=== PATIENT | female | born 1995 | race Caucasian/White ===

== ENCOUNTER 2024-03-08 22:14 | Emergency (ER) | payer OTHER ==
[~2024-03-08] VITALS: Ht 149.9 cm; Wt 61.6 kg
[2024-03-08] MEDS: diphenhydrAMINE 50 mg/ml inj IV ONE (23:20)
[2024-03-08] MEDS: ketorolac trometh 15mg/ml vial 15 MG/ML ML IV ONE (23:20)
[2024-03-08] MEDS: metoclopramide 5 mg/ml inj IV ONE (23:21)
[2024-03-08] MEDS: normal saline 1000ML IV soln IVB ONE ×2 (23:21→23:22)
[2024-03-08 23:22] LABS: BASOPHILS # (AUTO) 0.1 X10'3 (0-0.2); BASOPHILS % (AUTO) 0.9 % (0-1); EOSINOPHILS # (AUTO) 0.1 X10'3 (0-0.9); EOSINOPHILS % (AUTO) 1.1 % (0-6); HEMATOCRIT 43.4 % (35.0-45.0); HEMOGLOBIN 15.1 g/dl (12.0-16.0); LYMPHOCYTES # (AUTO) 2.8 X10'3 (1.1-4.8); LYMPHOCYTES % (AUTO) 28.1 % (21-51); MEAN CORPUSCULAR HEMOGLOBIN 30.8 PG (27.0-31.0); MEAN CORPUSCULAR HGB CONC 34.8 g/dL (33.0-36.5); MEAN CORPUSCULAR VOLUME 88.6 FL (78-98); MEAN PLATELET VOLUME 7.9 FL (7.4-10.4); MONOCYTES # (AUTO) 0.6 X10'3 (0-0.9); MONOCYTES % (AUTO) 6.3 % (2-12); NEUTROPHILS # (AUTO) 6.3 X10'3 (1.8-7.7); NEUTROPHILS % (AUTO) 63.6 % (42-75); PLATELET COUNT 342 X10'3 (140-440); RED CELL DISTRIBUTION WIDTH 12.2 % (11.5-14.5); WHITE BLOOD COUNT 9.9 X10'3 (4.5-11.0)
[2024-03-08 23:29] LABS: ALANINE AMINOTRANSFERASE 23 U/L (12-78); ALBUMIN/GLOBULIN RATIO 0.8 (1.1-1.5); ALKALINE PHOSPHATASE 76 IU/L (46-116); ANION GAP 12 (8-16); ASPARTATE AMINO TRANSFERASE 29 U/L (10-37); BILIRUBIN,TOTAL 0.7 MG/DL (0.1-1.0); BLOOD UREA NITROGEN 10 MG/DL (7-18); BUN/CREATININE RATIO 15.9 (10.0-20.0); CALCIUM 9.6 MG/DL (8.5-10.1); CHLORIDE 102 MMOL/L (99-107); CREATININE 0.63 MG/DL (0.40-0.90); GLUCOSE 111 MG/DL (70-104); LIPASE 45 U/L (16-77); POTASSIUM 4.2 MMOL/L (3.5-5.1); SODIUM 136 MMOL/L (135-145); TOTAL CARBON DIOXIDE 21.8 MMOL/L (24-32); TOTAL PROTEIN 8.9 G/DL (6.4-8.2); eCRCL 91 ML/MIN; eGFR > 90 ML/MIN
[2024-03-09] MEDS: ondansetron/PF 4mg/2ml inj IV ONE (00:38)
[2024-03-09 00:40] LABS: BILIRUBIN,URINE NEGATIVE (Neg); CLARITY,URINE CLEAR (Clear); COLOR,URINE YELLOW (Yellow); GLUCOSE, URINE NEGATIVE (Neg); KETONES,URINE TRACE mg/dl (Neg); LEUKOCYTE ESTERASE ,URINE TRACE (Neg); NITRITES, URINE NEGATIVE (Neg); OCCULT BLOOD,URINE SMALL (Neg); PH,URINE 5.5 (4.8-8.0); PROTEIN,URINE NEGATIVE (Neg); UROBILINOGEN,URINE 0.2 E.U/dL (0.2-1.0)
[2024-03-09 00:41] LABS: URINE HCG NEGATIVE (NEG)
[2024-03-09 00:44] LABS: UA COLLECTION TYPE CLN CATCH MIDSTREAM
[2024-03-09 00:46] LABS: BACTERIA,URINE FEW /HPF (Neg); SQUAMOUS EPITHELIAL CELL,UR FEW /LPF (FEW)
[2024-03-09] MEDS ORDERED: CEFU250T95 PO (01:05)
[2024-03-09] MEDS ORDERED: ONDA-243 PO (01:05)
[2024-03-09] MEDS: CefTRIAXone 2gm/D5W 50ml BAG 50 ML IV ONE (01:18)
[2024-03-09 01:20] VITALS: BP 107/60; PULSE 96; RESP 16; O2SAT 97
== END 2024-03-09 01:52 | disposition home or self-care (01) ==
LOC: ER 22:15
DX: N39.0 Urinary tract infection, site not specified (principal); F12.90 Cannabis use, unspecified, uncomplicated; E86.0 Dehydration; Z88.5 Allergy status to narcotic agent
CPT/HCPCS: 36415; 80053; 81001; 81025; 83690; 83735; 84100; 85025; 87088; 96361; 96365; 96375; 99284; J0696; J1200; J1885; J2405; J2765; J7030; 96360

== ENCOUNTER 2024-03-12 00:18 | Emergency (ER) | payer OTHER ==
[~2024-03-12] VITALS: Ht 149.9 cm; Wt 59.1 kg
[~2024-03-12 00:18] MED LIST: CEFU250T95 PO; ONDA-243 PO
[2024-03-12 00:29] VITALS: BP 143/85; PULSE 87; RESP 16; TEMP 98.3; O2SAT 98
[2024-03-12 01:39] LABS: BASOPHILS # (AUTO) 0.1 X10'3 (0-0.2); BASOPHILS % (AUTO) 0.7 % (0-1); EOSINOPHILS # (AUTO) 0.2 X10'3 (0-0.9); EOSINOPHILS % (AUTO) 1.8 % (0-6); HEMATOCRIT 35.1 % (35.0-45.0); HEMOGLOBIN 12.2 g/dl (12.0-16.0); LYMPHOCYTES # (AUTO) 2.8 X10'3 (1.1-4.8); LYMPHOCYTES % (AUTO) 28.5 % (21-51); MEAN CORPUSCULAR HEMOGLOBIN 30.9 PG (27.0-31.0); MEAN CORPUSCULAR HGB CONC 34.8 g/dL (33.0-36.5); MEAN CORPUSCULAR VOLUME 88.9 FL (78-98); MEAN PLATELET VOLUME 7.8 FL (7.4-10.4); MONOCYTES # (AUTO) 0.7 X10'3 (0-0.9); MONOCYTES % (AUTO) 7.1 % (2-12); NEUTROPHILS % (AUTO) 61.9 % (42-75); PLATELET COUNT 290 X10'3 (140-440); RED BLOOD COUNT 3.95 X10'6 (4.20-5.60); RED CELL DISTRIBUTION WIDTH 12.5 % (11.5-14.5); WHITE BLOOD COUNT 9.7 X10'3 (4.5-11.0)
[2024-03-12 01:54] LABS: ALANINE AMINOTRANSFERASE 27 U/L (12-78); ALKALINE PHOSPHATASE 65 IU/L (46-116); ANION GAP 9 (8-16); ASPARTATE AMINO TRANSFERASE 18 U/L (10-37); BILIRUBIN,TOTAL 0.3 MG/DL (0.1-1.0); BLOOD UREA NITROGEN 15 MG/DL (7-18); BUN/CREATININE RATIO 25.4 (10.0-20.0); CALCIUM 9.2 MG/DL (8.5-10.1); CHLORIDE 106 MMOL/L (99-107); CREATININE 0.59 MG/DL (0.40-0.90); GLUCOSE 87 MG/DL (70-104); POTASSIUM 3.5 MMOL/L (3.5-5.1); SODIUM 141 MMOL/L (135-145); TOTAL CARBON DIOXIDE 25.6 MMOL/L (24-32); TOTAL PROTEIN 8.1 G/DL (6.4-8.2); eCRCL 98 ML/MIN; eGFR > 90 ML/MIN
[2024-03-13] MEDS ORDERED: HYDR-3973 PO (11:29)
[2024-03-13] MEDS ORDERED: SULF1TAB49 PO (11:29)
== END 2024-03-12 05:28 | disposition left against medical advice (07) ==
LOC: ER 00:18
DX: R55 Syncope and collapse (principal); Z88.0 Allergy status to penicillin; Z88.8 Allergy status to other drugs, medicaments and biological substances; Z53.21 Procedure and treatment not carried out due to patient leaving prior to being seen by health care provider
CPT/HCPCS: 36415; 71045; 80053; 84484; 85025; 93005

== ENCOUNTER 2024-03-13 05:57 | Emergency (ER) | payer OTHER ==
[~2024-03-13] VITALS: Ht 149.9 cm; Wt 62.7 kg
[2024-03-13] MEDS: normal saline 1000ML IV soln IVB ONE (06:40)
[2024-03-13 06:53] LABS: BILIRUBIN,URINE NEGATIVE (Neg); CLARITY,URINE SLIGHTLY CLOUDY (Clear); COLOR,URINE STRAW (Yellow); GLUCOSE, URINE NEGATIVE (Neg); KETONES,URINE NEGATIVE (Neg); LEUKOCYTE ESTERASE ,URINE LARGE (Neg); NITRITES, URINE NEGATIVE (Neg); OCCULT BLOOD,URINE TRACE-INTACT (Neg); PROTEIN,URINE NEGATIVE (Neg); UROBILINOGEN,URINE 0.2 E.U/dL (0.2-1.0)
[2024-03-13 06:58] LABS: URINE HCG NEGATIVE (NEG)
[2024-03-13 07:03] LABS: UA COLLECTION TYPE CLN CATCH MIDSTREAM
[2024-03-13 07:07] LABS: BACTERIA,URINE 1+ /HPF (Neg); MUCUS STRANDS NONE SEEN /LPF (Neg); RBC,URINE NONE SEEN /HPF (0-2); SQUAMOUS EPITHELIAL CELL,UR MANY /LPF (FEW); WBC,URINE 50-100 /HPF (0-4)
[2024-03-13] MEDS: normal saline 1000ml 1,000 ML IV ONE (07:42)
[2024-03-13] MEDS: ketorolac trometh 30MG/ML vial 30 MG/ML VIAL IV ONE (07:43)
[2024-03-13] MEDS: proCHLORperazine 10 MG/2 ml inj IV ONE (07:43)
[2024-03-13 08:31] LABS: BASOPHILS # (AUTO) 0.1 X10'3 (0-0.2); BASOPHILS % (AUTO) 0.8 % (0-1); EOSINOPHILS # (AUTO) 0.1 X10'3 (0-0.9); EOSINOPHILS % (AUTO) 1.4 % (0-6); HEMATOCRIT 38.4 % (35.0-45.0); HEMOGLOBIN 13.1 g/dl (12.0-16.0); LYMPHOCYTES # (AUTO) 2.3 X10'3 (1.1-4.8); MEAN CORPUSCULAR HEMOGLOBIN 30.9 PG (27.0-31.0); MEAN CORPUSCULAR HGB CONC 34.2 g/dL (33.0-36.5); MEAN CORPUSCULAR VOLUME 90.1 FL (78-98); MEAN PLATELET VOLUME 8.5 FL (7.4-10.4); MONOCYTES # (AUTO) 0.6 X10'3 (0-0.9); MONOCYTES % (AUTO) 5.9 % (2-12); NEUTROPHILS # (AUTO) 7.2 X10'3 (1.8-7.7); NEUTROPHILS % (AUTO) 69.9 % (42-75); PLATELET COUNT 330 X10'3 (140-440); RED BLOOD COUNT 4.26 X10'6 (4.20-5.60); RED CELL DISTRIBUTION WIDTH 12.7 % (11.5-14.5); WHITE BLOOD COUNT 10.3 X10'3 (4.5-11.0)
[2024-03-13 08:48] LABS: ALANINE AMINOTRANSFERASE 23 U/L (12-78); ALBUMIN/GLOBULIN RATIO 0.9 (1.1-1.5); ALKALINE PHOSPHATASE 65 IU/L (46-116); ANION GAP 11 (8-16); ASPARTATE AMINO TRANSFERASE 15 U/L (10-37); BILIRUBIN,TOTAL 0.3 MG/DL (0.1-1.0); BLOOD UREA NITROGEN 7 MG/DL (7-18); BUN/CREATININE RATIO 13.2 (10.0-20.0); CALCIUM 9.3 MG/DL (8.5-10.1); CHLORIDE 105 MMOL/L (99-107); CREATININE 0.53 MG/DL (0.40-0.90); GLUCOSE 103 MG/DL (70-104); LIPASE 55 U/L (16-77); POTASSIUM 3.6 MMOL/L (3.5-5.1); SODIUM 140 MMOL/L (135-145); TOTAL CARBON DIOXIDE 23.7 MMOL/L (24-32); TOTAL PROTEIN 8.4 G/DL (6.4-8.2); eCRCL 109 ML/MIN; eGFR > 90 ML/MIN
[2024-03-13] MEDS: ondansetron/PF 4mg/2ml inj IV ONE (09:56)
[2024-03-13] MEDS ORDERED: SULF1TAB49 PO (11:29)
[2024-03-13] MEDS ORDERED: HYDR-3973 PO (11:29)
[2024-03-13] MEDS: sulfamethoxazole/trimethoprim DS (800/160mg) tablet PO ONE (12:02)
[2024-03-13] MEDS: HYDROcodone/acetaminophen 5mg/325mg tablet PO ONE (12:02)
[2024-03-13 12:07] VITALS: BP 113/75; PULSE 114; RESP 18; TEMP 97.7; O2SAT 99
== END 2024-03-13 12:08 | disposition home or self-care (01) ==
LOC: ER 05:57
DX: N39.0 Urinary tract infection, site not specified (principal); F12.90 Cannabis use, unspecified, uncomplicated; Z88.5 Allergy status to narcotic agent
CPT/HCPCS: 36415; 76700; 80053; 81001; 81025; 83690; 85025; 96361; 96374; 96375; 99285; J0780; J1885; J2405; J7030; J7040

== ENCOUNTER 2024-06-16 15:43 | Emergency (ER) | payer MEDICAID, OTHER ==
[~2024-06-16] VITALS: Ht 149.9 cm; Wt 61.4 kg
[~2024-06-16 15:43] MED LIST changes: -CEFU250T95 PO
[2024-06-16 16:28] LABS: BILIRUBIN,URINE NEGATIVE (Neg); CLARITY,URINE CLEAR (Clear); COLOR,URINE YELLOW (Yellow); GLUCOSE, URINE NEGATIVE (Neg); KETONES,URINE NEGATIVE (Neg); LEUKOCYTE ESTERASE ,URINE SMALL (Neg); NITRITES, URINE NEGATIVE (Neg); OCCULT BLOOD,URINE TRACE-INTACT (Neg); PH,URINE 6.5 (4.8-8.0); PROTEIN,URINE NEGATIVE (Neg); URINE HCG NEGATIVE (NEG); UROBILINOGEN,URINE 0.2 E.U/dL (0.2-1.0)
[2024-06-16 16:33] LABS: UA COLLECTION TYPE CLN CATCH MIDSTREAM
[2024-06-16 16:35] LABS: BACTERIA,URINE FEW /HPF (Neg); RBC,URINE 0-2 /HPF (0-2); SQUAMOUS EPITHELIAL CELL,UR FEW /LPF (FEW)
[2024-06-16 16:36] LABS: AMORPHOUS PHOSPHATES 1+; MUCUS STRANDS FEW /LPF (Neg)
--- NOTE | 2024-06-16 17:02 | Physician Documentation ---
History of Present Illness ~ Chief Complaint: Flank Pain Stated Complaint: ABD PAIN Time Seen by MD: 17:01 Mode of Arrival: POV [facility] 29-year-old female presents to the emergency department reporting that she has had chronic issues with urinary tract infections for the last six months. Her last treatment was in February, but the that time she was actually found to have chlamydia. She has had issues with low back pain, and saw her doctor about a month ago and received muscle relaxants. In the last couple of days, however, she has developed a fever as high as 102, been unusually tired, and has felt somewhat flu-like. She does also report that she has urinary tract infection symptoms again. She denies vaginal discharge. She reports a negative test at home. She denies concerns for STIs. She has been nauseous, reduced appetite, but has not vomited. Medication Reconciliation Allergies: Coded Allergies: tramadol (Verified Allergy, Intermediate, ANXIETY, 06/16/24) Uncoded Allergies: PENICILLIN (Allergy, Unknown, 03/13/24) Scheduled Sulfamethoxazole/Trimethoprim (Bactrim Ds Tablet), 1 EACH PO BID Scheduled PRN ONDANSETRON ODT 4mg tablet (Ondansetron Odt), 1 TABLET PO Q6H PRN for nausea/vomiting Past Medical History Past Medical History: No Pertinent History Past Surgical History: no surgical history Drug Use: marijuana Lives In: Home Review of Systems ROS As stated above in the HPI, otherwise all systems are reviewed and negative. Physical Exam Vital Signs: Temperature: 98.4, Source: Oral, Heart Rate: 93, Respiratory Rate: 17, BP: 124/84, Pulse Oximetry: 99, Weight: 61.360 Physical Exam General: Alert, no apparent distress. Neck: Full range of motion. Respiratory: Lungs clear, no respiratory distress. Chest: No accessory muscle use. Cardiovascular: Regular rate and rhythm, no murmurs. Gastrointestinal: Soft, nontender, nondistended. Bowels sounds present. Right CVA tenderness. Extremities: Normal range of motion, no deformity. Neurologic: Oriented x4. Psychiatric: Normal mood and affect. Skin: Normal color, warm and dry. No edema, no ecchymosis. Progress Progress Note Dr. Tracy Cook evaluated this patient last night she had a fever. Today she developed some epigastric discomfort and a feeling of faintness. She also complained of right lower quadrant to suprapubic discomfort. She also complaining of right-sided flank pain. These feels similar to prior episodes of pyelonephritis . She is afebrile here with no tachycardia and normal blood pressure. She has no leukocytosis and her exam is mostly benign she has a mild suprapubic discomfort/tenderness and potential mild right lower quadrant tenderness. No periumbilical tenderness no guarding no rebound. I did discuss the possibility of this being an early appendicitis. We both agreed that at this point we can treat as a urinary tract infection given her history and how it feels similar however she is aware that she needs to return to the emergency department if she has any progression of her symptoms and that if she does not have complete resolution of her symptoms within a few days then she should be seen again by her primary care physician or chef head. Results/Orders Results/Orders Medications Received in ER Medications (Trade) Dose Ordered Sig/Nathaly Route PRN Reason Start Time Stop Time Status Last Admin Dose Admin (Toradol injection) 15 mg ONCE ONCE IV 06/16/24 17:20 06/16/24 17:21 DC 06/16/24 17:51 15 MG (Zofran 4mg/2ml vial) 4 mg ONCE ONCE IV 06/16/24 17:20 06/16/24 17:21 DC 06/16/24 17:51 4 MG Sodium Chloride 1,000 ml @ 1,000 mls/hr ONCE ONCE IV 06/16/24 17:20 06/16/24 18:19 DC 06/16/24 17:51 1,000 MLS/HR Ceftriaxone Sodium 50 ml @ 100 mls/hr ONCE ONCE IV 06/16/24 18:15 06/16/24 18:44 DC 06/16/24 18:44 100 MLS/HR Vital Signs 06/16/24 06/16/24 06/16/24 06/16/24 15:47 16:30 16:32 17:00 Temp 98.6 98.4 Pulse 89 93 77 Resp 18 12 17 13 B/P (MAP) 115/76 124/84 (97) 112/72 (85) Pulse Ox 99 99 98 O2 Flow Rate 0 06/16/24 06/16/24 06/16/24 06/16/24 17:11 17:30 18:00 18:21 Pulse 86 77 76 76 Resp 15 15 16 B/P (MAP) 136/81 108/72 (84) 112/86 Pulse Ox 99 98 O2 Flow Rate 0 0 06/16/24 19:00 Pulse 80 Resp 16 B/P (MAP) 111/63 (79) Pulse Ox 100 Laboratory Tests Test 06/16/24 15:50 06/16/24 17:49 Urine Specimen Description Cln catch midstream Urine Color Yellow Urine Clarity Clear Urine pH 6.5 Urine Specific [place] 1.020 Urine Protein Negative Urine Glucose (UA) Negative Urine Ketones Negative Urine Occult Blood Trace-intact Urine Nitrite Negative Urine Bilirubin Negative Urine Urobilinogen 0.2 Urine Leukocyte Esterase Small H Urine RBC 0-2 Urine WBC 5-10 H Urine Squamous Epithelial Cells Few Urine Transitional Epithelial Cells Urine Amorphous Phosphates 1+ Urine Bacteria Few Urine Mucus Few Urine Culture Indicated Indicated Volume Urine Centrifuged 10 ml Urine HCG, Qualitative Negative Urine Comment White Blood Count 8.8 Red Blood Count 4.39 Hemoglobin 13.1 Hematocrit 38.4 Mean Corpuscular Volume 87.6 Mean Corpuscular Hemoglobin 29.9 Mean Corpuscular Hemoglobin Concent 34.1 Red Cell Distribution Width 12.7 Platelet Count 306 Mean Platelet Volume 8.2 Neutrophils (%) (Auto) 72.6 Lymphocytes (%) (Auto) 21.1 Monocytes (%) (Auto) 4.8 Eosinophils (%) (Auto) 1.1 Basophils (%) (Auto) 0.4 Neutrophils # (Auto) 6.4 Lymphocytes # (Auto) 1.9 Monocytes # (Auto) 0.4 Eosinophils # (Auto) 0.1 Basophils # (Auto) 0.0 CBC Comment Sodium Level 141 Potassium Level 3.6 Chloride Level 106 Carbon Dioxide Level 24.3 Anion Gap 11 Blood Urea Nitrogen 6 L Creatinine 0.90 Estimated GFR/1.73 m2 75 BUN/Creatinine Ratio 6.7 L Glucose Level 83 Lactic Acid Level 1.0 Calcium Level 9.2 Total Bilirubin 0.6 Aspartate Amino Transf (AST/SGOT) 17 Alanine Aminotransferase (ALT/SGPT) 20 Alkaline Phosphatase 70 C-Reactive Protein 0.15 Total Protein 7.8 Albumin 4.2 Globulin 3.6 Albumin/Globulin Ratio 1.2 Procalcitonin < 0.05 Chemistry Comments Microbiology Date/Time Source Procedure Growth Status 06/16/24 16:36 Urine Clean Catch Midstream Urine Culture - Preliminary Culture received. Resulted EKG/XRAY/CT/US/VASC/MRI CT : Impression Considered CT scan however with her symptoms similar to prior pyelo UTI no white count no fever imaging deferred for now Medical Decision Making Additional Comment 29-year-old female who presents to the emergency department with symptoms of complicated urinary tract infection. She was found to have right CVA tenderness on exam. Reported fevers of 102 at home. Labs did not indicate concern for sep sis. She was appropriate for tx with Rocephin IV in the ER and to be sent home with a course of Bactrim x 5 days for home treatment. Should return if worse, otherwise followup with PCP. Departure Time of Disposition: 18:33 Disposition: 01 HOME / SELF CARE / HOMELESS Impression: Primary Impression: Acute urinary tract infection Condition: Stable Discharge Instructions: Pyelonephritis, Adult Additional Instructions: You are being treated for pyelonephritis, which is a urinary tract infection that has started to climb into the kidneys. Take the antibiotics as prescribed and use Ibuprofen or acetaminophen per label instructions as needed for pain. As discussed this could also be a more sinister infection such as appendicitis. We expect that you should improve rapidly with antibiotics. If you have any worsening of your symptoms please return immediately to the emergency department otherwise follow up with your primary care physician if you do not have resolution of your symptoms within the next 3-4 days Referrals: NO PRIMARY CARE PROVIDER (PCP) Prescriptions Sulfamethoxazole/Trimethoprim (Bactrim Ds Tablet) 800 Mg-160 Mg Tablet 1 EACH PO BID for 5 Days, #10 TAB Prov: BIRGIT HELM NP 06/16/24 Education Educated: Patient, Family Educated regarding: diagnosis, treatment, prognosis, need for follow up Signature Scribe Signature: no scribe Attestation: The note accurately reflects work and decisions made by me.Birgit Gallardo NP 06/16/24 18:37 BIRGIT HELM NP June 16, 2024 17:01 SVAANA WRIGHT MD June 16, 2024 19:43
[2024-06-16] MEDS: ondansetron/PF 4mg/2ml inj IV ONE (17:51)
[2024-06-16] MEDS: ketorolac trometh 15mg/ml vial 15 MG/ML ML IV ONE (17:51)
[2024-06-16] MEDS: normal saline 1000ml 1,000 ML IV ONE (17:51)
[2024-06-16 18:11] LABS: BASOPHILS % (AUTO) 0.4 % (0-1); EOSINOPHILS # (AUTO) 0.1 X10'3 (0-0.9); EOSINOPHILS % (AUTO) 1.1 % (0-6); HEMATOCRIT 38.4 % (35.0-45.0); HEMOGLOBIN 13.1 g/dl (12.0-16.0); LYMPHOCYTES # (AUTO) 1.9 X10'3 (1.1-4.8); LYMPHOCYTES % (AUTO) 21.1 % (21-51); MEAN CORPUSCULAR HEMOGLOBIN 29.9 PG (27.0-31.0); MEAN CORPUSCULAR HGB CONC 34.1 g/dL (33.0-36.5); MEAN CORPUSCULAR VOLUME 87.6 FL (78-98); MEAN PLATELET VOLUME 8.2 FL (7.4-10.4); MONOCYTES # (AUTO) 0.4 X10'3 (0-0.9); MONOCYTES % (AUTO) 4.8 % (2-12); NEUTROPHILS # (AUTO) 6.4 X10'3 (1.8-7.7); NEUTROPHILS % (AUTO) 72.6 % (42-75); PLATELET COUNT 306 X10'3 (140-440); RED BLOOD COUNT 4.39 X10'6 (4.20-5.60); RED CELL DISTRIBUTION WIDTH 12.7 % (11.5-14.5); WHITE BLOOD COUNT 8.8 X10'3 (4.5-11.0)
[2024-06-16] MEDS ORDERED: SULF1TAB49 PO (18:35)
[2024-06-16 18:37] LABS: ALANINE AMINOTRANSFERASE 20 U/L (12-78); ALBUMIN 4.2 G/DL (3.4-5.0); ALBUMIN/GLOBULIN RATIO 1.2 (1.1-1.5); ALKALINE PHOSPHATASE 70 IU/L (46-116); ANION GAP 11 (8-16); ASPARTATE AMINO TRANSFERASE 17 U/L (10-37); BILIRUBIN,TOTAL 0.6 MG/DL (0.1-1.0); BLOOD UREA NITROGEN 6 MG/DL (7-18); BUN/CREATININE RATIO 6.7 (10.0-20.0); C-REACTIVE PROTEIN 0.15 MG/DL (0.0-0.5); CALCIUM 9.2 MG/DL (8.5-10.1); CHLORIDE 106 MMOL/L (99-107); GLUCOSE 83 MG/DL (70-104); POTASSIUM 3.6 MMOL/L (3.5-5.1); SODIUM 141 MMOL/L (135-145); TOTAL CARBON DIOXIDE 24.3 MMOL/L (24-32); TOTAL PROTEIN 7.8 G/DL (6.4-8.2); eCRCL 63 ML/MIN; eGFR 75 ML/MIN
[2024-06-16] MEDS: CefTRIAXone/D5W-Rocephin 1gm 50 ML IV ONE (18:44)
[2024-06-16 20:02] VITALS: BP 105/68; PULSE 81; RESP 19; TEMP 98.4; O2SAT 98
== END 2024-06-16 20:05 | disposition home or self-care (01) ==
LOC: ER 15:43
DX: N39.0 Urinary tract infection, site not specified (principal); Z88.5 Allergy status to narcotic agent
CPT/HCPCS: 36415; 80053; 81001; 81025; 83605; 84145; 85025; 86140; 87088; 87103; 96361; 96365; 96375; 99285; J0696; J1885; J2405; J7030

== ENCOUNTER 2024-06-18 16:16 | Emergency (ER) | payer MEDICAID ==
[~2024-06-18] VITALS: Ht 149.9 cm; Wt 62.4 kg
[~2024-06-18 16:16] MED LIST changes: +SULF1TAB49 PO
[2024-06-18 17:24] VITALS: TEMP 98.4
[2024-06-18 17:24] LABS: BASOPHILS # (AUTO) 0.1 X10'3 (0-0.2); EOSINOPHILS # (AUTO) 0.1 X10'3 (0-0.9); MEAN CORPUSCULAR HGB CONC 34.8 g/dL (33.0-36.5); MONOCYTES # (AUTO) 0.4 X10'3 (0-0.9); RED CELL DISTRIBUTION WIDTH 12.4 % (11.5-14.5)
[2024-06-18 17:26] LABS: BASOPHILS % (AUTO) 0.7 % (0-1); HEMATOCRIT 37.5 % (35.0-45.0); HEMOGLOBIN 13.1 g/dl (12.0-16.0); LYMPHOCYTES # (AUTO) 2.5 X10'3 (1.1-4.8); LYMPHOCYTES % (AUTO) 29.3 % (21-51); MEAN CORPUSCULAR HEMOGLOBIN 30.2 PG (27.0-31.0); MEAN CORPUSCULAR VOLUME 86.6 FL (78-98); MEAN PLATELET VOLUME 8.1 FL (7.4-10.4); MONOCYTES % (AUTO) 5.1 % (2-12); NEUTROPHILS # (AUTO) 5.4 X10'3 (1.8-7.7); NEUTROPHILS % (AUTO) 63.9 % (42-75); PLATELET COUNT 306 X10'3 (140-440); RED BLOOD COUNT 4.33 X10'6 (4.20-5.60); WHITE BLOOD COUNT 8.4 X10'3 (4.5-11.0)
--- NOTE | 2024-06-18 17:35 | Physician Documentation ---
History of Present Illness Chief Complaint: Abdominal Pain Stated Complaint: ABD PAIN Time Seen by MD: 16:28 Primary Medical Doctor: Noemi Hurd Mode of Arrival: POV, Ambulatory HPI 29 year old female reports a 6 month history of episodes of pyelonephritis and hospitalizations for same. Was seen here on Monday for recurrent symptoms, diagnosed with UTI, sent with bactrim, no improvement in symptoms since that time. Reports continued body aches, fevers, nausea and vomiting as well as dysu braulio. There was some concern that she might have appendicitis during her prior visit. Medication Reconciliation Allergies: Coded Allergies: tramadol (Verified Allergy, Intermediate, ANXIETY, 06/18/24) Uncoded Allergies: PENICILLIN (Allergy, Unknown, 03/13/24) Scheduled Sulfamethoxazole/Trimethoprim (Bactrim Ds Tablet), 1 EACH PO BID Scheduled PRN ONDANSETRON ODT 4mg tablet (Ondansetron Odt), 1 TABLET PO Q6H PRN for nausea/vomiting Past Medical History Past Medical History: No Pertinent History Past Surgical History: no surgical history Smoking Status: Never smoker Drug Use: marijuana Lives In: Home Review of Systems All Other Systems at this time: Reviewed and Negative Physical Exam Vital Signs: RN Vital Signs have been reviewed: Yes, Temperature: 98.4, Source: Oral, Heart Rate: 72, Respiratory Rate: 12, BP: 120/69, Pulse Oximetry: 97, Weight: 62.350 Physical Exam HEENT: PERRL, moist oral mucosa, EOMI Pulmonary: No respiratory distress Cardiac: RRR, no murmur, rub or gallop GI: nondistended, soft, nontender, no guarding, no rebound MSK: no deformity Skin: w/d/i, no rash Neuro: alert, nonfocal Psych: normal affect Progress Results/Orders Results/Orders Orders - ASHLEY COLLADO MD Normal Saline 1000ml (Sodium Chloride 10 (06/18/24 17:20) Ct Abdomen Pelvis (06/18/24 17:20) Completed Orders - ASHLEY COLLADO MD Ketorolac Trometh 30mg/Ml Vial (Toradol (06/18/24 17:20) Ondansetron Inj. (Zofran 4mg/2ml Vial) (06/18/24 17:20) Vital Signs 06/18/24 06/18/24 06/18/24 16:21 17:07 17:24 Temp 98.4 98.4 Pulse 107 72 Resp 18 16 12 B/P (MAP) 143/75 120/69 (86) Pulse Ox 98 97 Laboratory Tests Test 06/18/24 17:13 White Blood Count 8.4 Red Blood Count 4.33 Hemoglobin 13.1 Hematocrit 37.5 Mean Corpuscular Volume 86.6 Mean Corpuscular Hemoglobin 30.2 Mean Corpuscular Hemoglobin Concent 34.8 Red Cell Distribution Width 12.4 Platelet Count 306 Mean Platelet Volume 8.1 Neutrophils (%) (Auto) 63.9 Lymphocytes (%) (Auto) 29.3 Monocytes (%) (Auto) 5.1 Eosinophils (%) (Auto) 1.0 Basophils (%) (Auto) 0.7 Neutrophils # (Auto) 5.4 Lymphocytes # (Auto) 2.5 Monocytes # (Auto) 0.4 Eosinophils # (Auto) 0.1 Basophils # (Auto) 0.1 CBC Comment Chemistry Comments Medical Decision Making Findings 29 year old female with history of pyelonephritis, here for failure of outpatient therapy. IVF and meds, awaiting labs and UA, will perform CT scan given concern for appendicitis and will sign out to oncoming ER physician. Differential Dx:Considerations: Include: Appendicitis, Bowel obstruction, Constipation, Hernia, Hepatitis, Pancreatitis, PID, Urinary obstruction, Urinary tract infection Departure Disposition: 30 STILL A PATIENT Impression: Primary Impression: Urinary tract infection Condition: Stable Discharge Instructions: Abdominal Pain (Nonspecific) Referrals: NO PRIMARY CARE PROVIDER (PCP) Education Educated: Patient Educated regarding: diagnosis, treatment, prognosis, need for follow up Signature Scribe Signature: . Attestation: . ASHLEY COLLADO MD June 18, 2024 17:35
[2024-06-18 17:44] LABS: BILIRUBIN,URINE NEGATIVE (Neg); CLARITY,URINE CLEAR (Clear); COLOR,URINE STRAW (Yellow); GLUCOSE, URINE NEGATIVE (Neg); KETONES,URINE TRACE mg/dl (Neg); NITRITES, URINE NEGATIVE (Neg); OCCULT BLOOD,URINE TRACE-INTACT (Neg); PH,URINE 6.5 (4.8-8.0); PROTEIN,URINE NEGATIVE (Neg); URINE HCG NEGATIVE (NEG); UROBILINOGEN,URINE 0.2 E.U/dL (0.2-1.0)
[2024-06-18 17:46] LABS: ALANINE AMINOTRANSFERASE 24 U/L (12-78); ALBUMIN 4.2 G/DL (3.4-5.0); ALBUMIN/GLOBULIN RATIO 1.1 (1.1-1.5); ALKALINE PHOSPHATASE 73 IU/L (46-116); ANION GAP 15 (8-16); ASPARTATE AMINO TRANSFERASE 15 U/L (10-37); BILIRUBIN,TOTAL 0.5 MG/DL (0.1-1.0); BLOOD UREA NITROGEN 10 MG/DL (7-18); BUN/CREATININE RATIO 10.9 (10.0-20.0); CALCIUM 9.2 MG/DL (8.5-10.1); CHLORIDE 105 MMOL/L (99-107); CREATININE 0.92 MG/DL (0.40-0.90); GLUCOSE 90 MG/DL (70-104); LIPASE 44 U/L (16-77); POTASSIUM 3.1 MMOL/L (3.5-5.1); SODIUM 141 MMOL/L (135-145); TOTAL CARBON DIOXIDE 20.6 MMOL/L (24-32); TOTAL PROTEIN 7.9 G/DL (6.4-8.2); eCRCL 62 ML/MIN; eGFR 73 ML/MIN
[2024-06-18 17:48] LABS: UA COLLECTION TYPE CLN CATCH MIDSTREAM
[2024-06-18 17:52] LABS: BACTERIA,URINE FEW /HPF (Neg); WBC,URINE 0-4 /HPF (0-4)
[2024-06-18 17:53] LABS: MUCUS STRANDS NONE SEEN /LPF (Neg); SQUAMOUS EPITHELIAL CELL,UR NONE SEEN /LPF (FEW)
[2024-06-18] MEDS: ondansetron/PF 4mg/2ml inj IV ONE ×2 (17:55→20:55)
[2024-06-18] MEDS: ketorolac trometh 30MG/ML vial 30 MG/ML VIAL IV ONE (17:56)
[2024-06-18] MEDS ORDERED: iohexol 300mg/ml 100ml inj. ONE (17:57)
[2024-06-18] MEDS: normal saline 1000ml 1,000 ML IV ONE (17:58)
[2024-06-18] MEDS: fentaNYL/PF 50MCG/1 ML 2ML syringe IV ONE (20:51)
[2024-06-18] MEDS: morphine 4 MG/ML inj SYRINge IV ONE ×2 (20:56→22:54)
--- NOTE | 2024-06-18 21:02 | RADIOLOGY REPORT ---
Clinical History abdominal pain Comparison None Technique: All CT scans at this medical facility are performed using dose modulation techniques as appropriate t o a performed exam including the following: Automated exposure control was utilized; adjustment of th e mA and/or kV according to patient size; and use of iterative reconstruction technique. All CT studies are reported to the Dose Index Registry of the [employer]. Contrast: omni 300 100ml Radiation Dose: CTDI (mGy): 10.34; DLP (mGy-cm): 532.6 JULY MANISH, [id number] FINDINGS: Lower chest: Unremarkable Liver: Unremarkable Gallbladder: Cholecystectomy Pancreas: Unremarkable Spleen: Unremarkable Adrenals:Unremarkable Kidneys: Unremarkable Stomach:Unremarkable Bowel:Evaluation of the bowel is limited and incomplete due to lack of oral contrast. The small and large bowel are grossly unremarkable. Normal appendix Urinary bladder:Unremarkable Reproductive organs:No pelvic masses Peritoneum, retroperitoneum, lymphadenopathy:Unremarkable Vascular structures:Unremarkable Abdominal wall: Tiny uncomplicated fat-containing umbilical hernia Musculoskeletal:No acute osseous abnormality IMPRESSION: No calcified nephroureterolithiasis or hydroureteronephrosis. No evidence of acute intra-abdominal abnormality This report was electronically signed by Colette Steele MD on 06/18/2024 8:58:55 PM.
[2024-06-18] MEDS ORDERED: PANT-47 PO (21:29)
[2024-06-18] MEDS: famotidine 20mg tablet PO ONE (22:53)
[2024-06-18] MEDS: pantoprazole 40mg Tablet.DR PO ONE (22:53)
[2024-06-18] MEDS: dicyclomine 10mg/ml 2ml ampule IM ONE (22:54)
[2024-06-18] MEDS: acetaminophen 1,000mg/100ml IV 100 ML IV ONE (22:55)
[2024-06-18 23:35] VITALS: BP 121/79; PULSE 97; RESP 18; O2SAT 100
[2024-06-19 05:44] LABS: LEUKOCYTE ESTERASE ,URINE NEGATIVE (Neg)
== END 2024-06-18 23:38 | disposition still patient (30) ==
LOC: ER 16:17
DX: N39.0 Urinary tract infection, site not specified (principal); F12.90 Cannabis use, unspecified, uncomplicated; Z88.5 Allergy status to narcotic agent; Z79.899 Other long term (current) drug therapy
CPT/HCPCS: 36415; 74177; 80053; 81001; 81025; 83690; 85025; 87491; 87591; 96361; 96365; 96372; 96375; 96376; 99285; J0131; J0500; J1885; J2270; J2405; J7030; Q9967

== ENCOUNTER 2024-11-24 10:58 | Emergency (ER) | payer OTHER ==
[~2024-11-24] VITALS: Ht 149.9 cm; Wt 59.1 kg
[~2024-11-24 10:58] MED LIST changes: +PANT-47 PO; -SULF1TAB49 PO
[2024-11-24 11:03] VITALS: TEMP 97.4
[2024-11-24 11:34] LABS: MEAN PLATELET VOLUME 8.2 FL (7.4-10.4); RED CELL DISTRIBUTION WIDTH 12.4 % (11.5-14.5)
[2024-11-24 11:52] LABS: CREATININE 0.56 MG/DL (0.40-0.90); TOTAL CARBON DIOXIDE 28.0 MMOL/L (24-32); eCRCL 102 ML/MIN; eGFR > 90 ML/MIN
[2024-11-24 12:18] LABS: URINE HCG NEGATIVE (NEG)
[2024-11-24 12:22] LABS: LEUKOCYTE ESTERASE ,URINE NEGATIVE (Neg); NITRITES, URINE NEGATIVE (Neg); OCCULT BLOOD,URINE TRACE-INTACT (Neg)
[2024-11-24 12:28] LABS: UA COLLECTION TYPE CLN CATCH MIDSTREAM
[2024-11-24 12:30] LABS: MUCUS STRANDS NONE SEEN /LPF (Neg); SQUAMOUS EPITHELIAL CELL,UR FEW /LPF (FEW)
--- NOTE | 2024-11-24 13:56 | Physician Documentation ---
History of Present Illness Chief Complaint: Abdominal Pain Stated Complaint: STOMACH PAIN Time Seen by MD: 13:31 Primary Medical Doctor: Noemi Hurd Source: patient (9), [facility] Mode of Arrival: Dropped Off HPI Patient comes in for evaluation of abdominal pain. She reports an all-over abdominal pain which began a month ago off and on, has been stronger over the last three days or so. She has been seen previously for this pain, initially felt to be related to her celiac disease, also she was told that she had a cyst on her right ovary which might have been contributing to the pain. She reports that the pain continues to come and go, without any significant palliative or provoking factors, usually already present 1st thing in the morning. Patient had quite a lot of diarrhea six or 8 times over the last couple of days, and had vomiting yesterday which got better after three doses of Zofran. She denies any fever, denies any dysuria, reports her last menstrual period was about four days ago. Last Menstrual Period: Nov 13, 2024 Medication Reconciliation Allergies: Coded Allergies: tramadol (Verified Allergy, Intermediate, ANXIETY, 06/18/24) fentanyl (Verified Adverse Reaction, Unknown, Respiratory Distress, 06/18/24) Uncoded Allergies: PENICILLIN (Allergy, Unknown, 03/13/24) Scheduled Pantoprazole Sodium (PROTONIX tablet), 1 TAB PO DAILY Scheduled PRN ONDANSETRON ODT 4mg tablet (Ondansetron Odt), 1 TABLET PO Q6H PRN for nausea/vomiting Past Medical History Past Medical History: *GI/HEPATOBILIARY* (Celiac disease), UTI Past Surgical History: no surgical history Last Menstrual Period: Nov 13, 2024 Smoking Status: Never smoker Alcohol Use: None Drug Use: marijuana Lives In: Home Review of Systems All Other Systems at this time: Reviewed and Negative Physical Exam Vital Signs: Temperature: 97.4, Heart Rate: 76, Respiratory Rate: 16, BP: 96/70, Pulse Oximetry: 98, Weight: 59.100 Oxygen Flow Rate: 0 Physical Exam General: Pt is awake, alert, oriented x4 in mild to moderate distress but well appearing. Head: Normocephalic and atraumatic. Eyes: Conjunctiva normal. ENT: Mucous membranes moist. Neck: Supple. Chest: Clear to auscultation bilaterally, without rales, rhonchi, or wheezes. There is no accessory muscle use or retractions. Cardiac: Regular rate and rhythm without murmurs, gallops or rubs. Palpation of the chest wall is normal. Abd: Soft, nondistended, tender in the epigastrium, less so in the RUQ, more so in the RLQ, with normoactive to slightly hyperactive bowel sounds. No guarding or rebound. Extremities: Within normal limits without cyanosis, clubbing, or edema. Skin: [place], warm and dry with no significant rash appreciated. Neuro: Cranial nerves II-XII grossly intact. The gait is normal. Progress Results/Orders Results/Orders Orders - CALLIE DUMONT MD Please Get Medical Records (11/24/24 13:32) Completed Orders - CALLIE DUMONT MD Hcg, Ur Ql (11/24/24 11:03) Cbc/Diff (11/24/24 11:03) BMP (11/24/24 11:03) Lipase (11/24/24 11:03) CMP (11/24/24 11:03) Ua W/Microscopic, Cult If Ind (11/24/24 11:10) Vital Signs 11/24/24 11/24/24 11/24/24 11:03 12:26 12:55 Temp 97.4 Pulse 83 76 Resp 18 16 16 B/P (MAP) 107/81 96/70 (79) Pulse Ox 98 98 O2 Flow Rate 0 0 Laboratory Tests Test 11/24/24 11:10 11/24/24 11:21 Urine Specimen Description Cln catch midstream Urine Color Straw Urine Clarity Clear Urine pH 6.0 Urine Specific [place] 1.010 Urine Protein Negative Urine Glucose (UA) Negative Urine Ketones Negative Urine Occult Blood Trace-intact Urine Nitrite Negative Urine Bilirubin Negative Urine Urobilinogen 0.2 Urine Leukocyte Esterase Negative Urine RBC 0-2 Urine WBC None seen Urine Squamous Epithelial Cells Few Urine Bacteria Few Urine Mucus None seen Urine Culture Indicated Not ind Volume Urine Centrifuged 10 ml Urine HCG, Qualitative Negative Urine Comment White Blood Count 10.9 Red Blood Count 4.57 Hemoglobin 13.7 Hematocrit 40.6 Mean Corpuscular Volume 88.8 Mean Corpuscular Hemoglobin 30.0 Mean Corpuscular Hemoglobin Concent 33.8 Red Cell Distribution Width 12.4 Platelet Count 283 Mean Platelet Volume 8.2 Neutrophils (%) (Auto) 84.7 H Lymphocytes (%) (Auto) 11.3 L Monocytes (%) (Auto) 3.2 Eosinophils (%) (Auto) 0.4 Basophils (%) (Auto) 0.4 Neutrophils # (Auto) 9.2 H Lymphocytes # (Auto) 1.2 Monocytes # (Auto) 0.3 Eosinophils # (Auto) 0.0 Basophils # (Auto) 0.0 CBC Comment Sodium Level 139 Potassium Level 4.1 Chloride Level 106 Carbon Dioxide Level 28.0 Anion Gap 5 L Blood Urea Nitrogen 8 Creatinine 0.56 Estimated GFR/1.73 m2 > 90 BUN/Creatinine Ratio 14.3 Glucose Level 105 H Calcium Level 9.2 Total Bilirubin 0.2 Aspartate Amino Transf (AST/SGOT) 17 Alanine Aminotransferase (ALT/SGPT) 12 Alkaline Phosphatase 86 Total Protein 8.2 Albumin 4.0 Globulin 4.2 Albumin/Globulin Ratio 1.0 L Lipase 33 Chemistry Comments Re-Evaluation Re-Evaluation #1: Re-Evaluation Time: 15:14 Progress Pt feeling much improved and wants to go home. She is ambulatory without difficulty. Awaiting U/S report Re-Evaluation #2: Re-Evaluation Time: 16:00 Progress Patient decided she did not want to wait until the ultrasound results were available and left. She was observed to be comfortable, and walking with a narrow based gait, stable at the time of her departure. Medical Decision Making Additional Comments Patient presented with diffuse abdominal pain more in the right lower quadrant, with history of a few prior visits for same. At [facility] in October when she was having this same pain she had a CT scan which showed no evidence for a ppendicitis. An ultrasound showed some small cysts in the right ovary. It is unclear why she has continuing recurrent pain. Workup is unremarkable today including ultrasound, no evidence for or urinary tract infection, electrolytes within normal limits. No peritoneal findings on exam. Patient left and would not wait for my discharge instructions, it is hoped that she will follow up with her PMD for continuing outpatient evaluation. Departure Time of Disposition: 16:00 Disposition: 07 LEFT AWOL/ELOPED Impression: Primary Impression: Abdominal pain Condition: Stable Additional Instructions: Left without aftercare instructions Referrals: NO PRIMARY CARE PROVIDER (PCP) Signature Scribe Signature: Attestation: CALLIE DUMONT MD Nov 24, 2024 13:56
[2024-11-24] MEDS: normal saline 1000ML IV soln IVB ONE (14:19)
[2024-11-24] MEDS: morphine 4 MG/ML inj SYRINge IV PRN (14:20)
[2024-11-24 15:00] VITALS: BP 128/77; PULSE 87; RESP 16; O2SAT 98
--- NOTE | 2024-11-24 15:35 | RADIOLOGY REPORT ---
TRANSABDOMINAL PELVIC ULTRASOUND CLINICAL HISTORY: RLQ pain, ovarian cyst TECHNIQUE: Multiple grayscale ultrasound images were obtained of the pelvis via transabdominal approach. Limited color Doppler and spectral Doppler acquisitions were also obtained. COMPARISON: CT CT ABDOMEN PELVIS W/ IV CONTRAST on DOS: 06/18/24 FINDINGS: Uterus: 3.0 x 1.7 x 2.2 cm. The uterine contour is smooth. No myometrial masses are seen. Endometrium: 0.4 cm. No endometrial mass is seen. Right adnexa: right ovary 3.0 x 1.7 x 2.2 cm. Normal arterial blood flow in the ovary. No right adnexal mass seen. Left adnexa: left ovary 2.1 x 1.7 x 2.7 cm. Normal arterial blood flow in the ovary. No left adnexal mass seen. Other: None IMPRESSION: 1. Unremarkable pelvic ultrasound.
== END 2024-11-24 16:00 | disposition left against medical advice (07) ==
LOC: ER 10:58
DX: R10.9 Unspecified abdominal pain (principal); F12.90 Cannabis use, unspecified, uncomplicated; Z88.5 Allergy status to narcotic agent; Z87.440 Personal history of urinary (tract) infections; Z79.899 Other long term (current) drug therapy
CPT/HCPCS: 36415; 76856; 80053; 81001; 81025; 83690; 85025; 93976; 96365; 96375; 99285; J0780; J2270; J2470; J7030